=== PATIENT | female | born 1965 | race Hispanic/Latino ===

== ENCOUNTER 2016-08-07 09:15 | Day surgery (SDC) | payer OTHER ==
[2016-08-07 10:09] VITALS: BMI 18.3
[2016-08-07] MEDS ORDERED: Lactated Ringer's 1,000 ML IV ONE (13:25)
[2016-08-07] MEDS ORDERED: Lactated Ringer's 500 ML IV SCH (13:45)
[2016-08-07 14:30] VITALS: TEMP 99.5
[2016-08-07 15:01] VITALS: RESP 14
[2016-08-07 15:36] VITALS: BP 124/77; PULSE 70; O2SAT 99
== END 2016-08-07 15:30 | disposition home or self-care (01) ==
LOC: C.ENDO 09:15
PROVIDERS: ATTEND Internal Medicine Gastroenterology
DX: K29.70 Gastritis, unspecified, without bleeding (principal); K44.9 Diaphragmatic hernia without obstruction or gangrene; K64.8 Other hemorrhoids
CPT/HCPCS: 43239; 45378; 88305; 88342; J7120